=== PATIENT | male | born 1945 | race Caucasian/White ===

== ENCOUNTER 2016-08-09 08:44 | Emergency (ER) | payer MEDICARE, BC ==
--- NOTE | 2016-08-09 10:31 | ED ---
Skin/Abscess/FB HPI - General Chief complaint: Skin/Abscess/Foreign Body Stated complaint: face pain, lip numbness Time Seen by Provider: 08/09/16 09:43 Source: patient, RN notes reviewed Mode of arrival: ambulatory Limitations: no limitations - History of Present Illness Initial comments: Patient is a 71-year-old male presents to the emergency room for evaluation of right-sided facial pain. Patient states he had a lymph node removal by Dr. Benoit 2013. Patient states he began having pain in that same area a few days ago. Patient states the pain was worse last night. Patient states he woke up this morning and felt some tingling in his right upper lip. Patient states he still continuing to have pain on the right side of his face right along the right side of his jaw and inferior to his right ear. Patient denies fevers or chills. Patient denies any trauma to the area. Patient denies any weakness in his arms or legs. Patient denies history of stroke. Patient denies headache or dizziness. Patient denies changes in vision. Patient denies changes in hearing. Patient denies any dental pain or trauma. Patient states he does not have an appointment with Dr. Benoit until next week. Patient denies any significant past medical history. - Related Data Home Medications Medication Instructions Recorded Confirmed Simvastatin [Zocor] 10 mg PO Q48H 08/09/16 08/09/16 Previous Rx's Medication Instructions Recorded Amoxicillin/Potassium Clav 1 each PO Q12HR #20 tab 08/09/16 [Augmentin 875-125 Tablet] Allergies Allergy/AdvReac Type Severity Reaction Status Date / Time Sulfa (Sulfonamide Allergy Unknown Verified 08/09/16 10:11 Antibiotics) Review of Systems ROS Statement: Those systems with pertinent positive or pertinent negative responses have been documented in the HPI. ROS Other: All systems not noted in ROS Statement are negative. Past Medical History Past Medical History: Hyperlipidemia Additional Past Medical History / Comment(s): diverticulitis History of Any Multi-Drug Resistant Organisms: None Reported Past Surgical History: Bowel Resection Smoking Status: Former smoker Past Alcohol Use History: Occasional Past Drug Use History: None Reported General Exam - General Exam Comments Initial Comments: Sitting in exam room, no acute distress. Limitations: no limitations General appearance: alert, in no apparent distress Head exam: Present: atraumatic, normocephalic, normal inspection Eye exam: Present: normal appearance, PERRL, EOMI Pupils: Present: normal accommodation ENT exam: Present: normal exam, normal oropharynx, other (Tenderness on palpating over right parotid gland) Neck exam: Present: normal inspection, tenderness (Tenderness on palpating over the right anterior cervical lymph node), full ROM Respiratory exam: Present: normal lung sounds bilaterally. Absent: respiratory distress Cardiovascular Exam: Present: regular rate, normal rhythm, normal heart sounds Extremities exam: Present: normal inspection Back exam: Present: normal inspection Neurological exam: Present: alert, oriented X3, CN II-XII intact, normal gait Expanded Patient oriented to: Present: person, place, time Speech: Present: fluid speech Cranial nerves: EOM's Intact: Normal, Tongue Deviation: Normal, Facial Sensation : Normal Sensory exam: Upper Extremity Light Touch: Normal, Lower Extremity Light Touch: Normal Motor strength exam: RUE: 5, LUE: 5, RLE: 5, LLE: 5 Eye Response: (4) open spontaneously Motor Response: (6) obeys commands Verbal Response: (5) oriented Psychiatric exam: Present: normal affect, normal mood Skin exam: Present: warm, dry, intact, normal color. Absent: rash Course Vital Signs 08/09/16 08/09/16 09:01 12:58 Temperature 98.2 F 98.3 F Pulse Rate 85 75 Respiratory 20 16 Rate Blood Pressure 169/86 163/84 O2 Sat by Pulse 98 93 L Oximetry Medical Decision Making - Medical Decision Making Patient is a 71-year-old male presents emergency room for evaluation of right sided neck/facial pain and right upper lip numbness. Labs ordered along with amylase to rule out parotitis. Labs show no acute findings. Patient has no evidence for stroke. Patient has no slurred speech or no facial drooping. Patient is alert and active. Strength 5+ in all [address] patient on antibiotics for lymphadenopathy and advised him to follow-up with Dr. Benoit. Patient stated that Dr. Benoit next week. Advised patient to return for any worsening symptoms. Patient states he understands everything that was discussed with him. Return parameters discussed. Discussed with Dr. Turner. - Lab Data Result diagrams: 08/09/16 10:30 08/09/16 10:30 Lab Results 08/09/16 08/09/16 Range/Units 10:30 10:30 WBC 6.9 (3.8-10.6) k/uL RBC 5.94 H (4.30-5.90) m/uL Hgb 17.8 H (13.0-17.5) gm/dL Hct 51.5 (39.0-53.0) % MCV 86.7 (80.0-100.0) fL MCH 30.0 (25.0-35.0) pg MCHC 34.6 (31.0-37.0) g/dL RDW 13.5 (11.5-15.5) % Plt Count 209 (150-450) k/uL Neutrophils % 75 % Lymphocytes % 16 % Monocytes % 5 % Eosinophils % 1 % Basophils % 1 % Neutrophils # 5.2 (1.3-7.7) k/uL Lymphocytes # 1.1 (1.0-4.8) k/uL Monocytes # 0.3 (0-1.0) k/uL Eosinophils # 0.1 (0-0.7) k/uL Basophils # 0.1 (0-0.2) k/uL Sodium 142 (137-145) mmol/L Potassium 4.7 (3.5-5.1) mmol/L Chloride 105 (98-107) mmol/L Carbon Dioxide 25 (22-30) mmol/L Anion Gap 12 mmol/L BUN 15 (9-20) mg/dL Creatinine 0.99 (0.66-1.25) mg/dL Est GFR (MDRD) Af Amer >60 (>60 ml/min/1.73 sqM) Est GFR (MDRD) Non-Af >60 (>60 ml/min/1.73 sqM) Glucose 105 H (74-99) mg/dL Calcium 9.9 (8.4-10.2) mg/dL Total Bilirubin 0.8 (0.2-1.3) mg/dL AST 23 (17-59) U/L ALT 38 (21-72) U/L Alkaline Phosphatase 63 (38-126) U/L Total Protein 7.8 (6.3-8.2) g/dL Albumin 4.4 (3.5-5.0) g/dL Amylase 74 (30-110) U/L Disposition Clinical Impression: Lymphadenopathy of right cervical region Disposition: HOME SELF-CARE Condition: Good Instructions: Lymphadenopathy (ED) Additional Instructions: Take antibiotics as directed. Please follow up with ear, nose and throat specialist for further evaluation. If any new symptom arises or symptoms worsen , return to ER as soon as possible. Prescriptions: Amoxicillin/Potassium Clav [Augmentin 875-125 Tablet] 1 each PO Q12HR #20 tab Referrals: Antoinette Vargas MD [Primary Care Provider] - 1-2 days Time of Disposition: 12:04
[2016-08-09 10:52] LABS: Basophils # (A) 0.1 k/uL (0-0.2); Basophils % (A) 1 %; CH 29.8; CHCM 34.5; Eosinophils # (A) 0.1 k/uL (0-0.7); Eosinophils % (A) 1 %; HCT 51.5 % (39.0-53.0); HDW 2.75; HGB 17.8 gm/dL (13.0-17.5); Luc # (Auto) 0.18; Luc % (Auto) 3; Lymphocytes # (A) 1.1 k/uL (1.0-4.8); Lymphocytes % (A) 16 %; MCHC 34.6 g/dL (31.0-37.0); MCV 86.7 fL (80.0-100.0); Mean Platelet Volume 7.3; Monocytes # (A) 0.3 k/uL (0-1.0); Monocytes % (A) 5 %; Neutrophils # (A) 5.2 k/uL (1.3-7.7); Neutrophils % (A) 75 %; RBC 5.94 m/uL (4.30-5.90); RDW 13.5 % (11.5-15.5); WBC 6.9 k/uL (3.8-10.6); WBC (Perox) 6.88
[2016-08-09 11:05] LABS: ALT 38 U/L (21-72); AST 23 U/L (17-59); Alkaline Phosphatase 63 U/L (38-126); Amylase 74 U/L (30-110); Anion Gap 12 mmol/L; Blood Urea Nitrogen 15 mg/dL (9-20); Calcium 9.9 mg/dL (8.4-10.2); Carbon Dioxide 25 mmol/L (22-30); Chloride 105 mmol/L (98-107); Glucose 105 mg/dL (74-99); Non-African American GFR(MDRD) >60 (>60 ml/min/1.73 sqM); Potassium 4.7 mmol/L (3.5-5.1); Sodium 142 mmol/L (137-145); Total Bilirubin 0.8 mg/dL (0.2-1.3); Total Protein 7.8 g/dL (6.3-8.2)
[2016-08-09 13:00] VITALS: BP 163/84; PULSE 75; RESP 16; TEMP 98.3
== END 2016-08-09 12:58 | disposition home or self-care (01) ==
LOC: EC 08:44
DX: R59.0 Localized enlarged lymph nodes (principal); H92.01 Otalgia, right ear; R51 Headache; R20.2 Paresthesia of skin; R68.84 Jaw pain; E78.5 Hyperlipidemia, unspecified; Z87.891 Personal history of nicotine dependence; Z79.899 Other long term (current) drug therapy; Z88.2 Allergy status to sulfonamides; Z98.890 Other specified postprocedural states
CPT/HCPCS: 36415; 80053; 82150; 85025; 99284

== ENCOUNTER → 2016-08-21 | Outpatient (CLI) | payer MEDICARE, BC ==
[2016-08-21 18:01] LABS: Basophils % (A) 0 %; CH 29.9; CHCM 33.5; Eosinophils # (A) 0.1 k/uL (0-0.7); Eosinophils % (A) 1 %; HCT 55.4 % (39.0-53.0); HDW 2.47; HGB 18.4 gm/dL (13.0-17.5); Luc # (Auto) 0.11; Luc % (Auto) 1; Lymphocytes # (A) 1.3 k/uL (1.0-4.8); Lymphocytes % (A) 10 %; MCH 29.7 pg (25.0-35.0); MCHC 33.1 g/dL (31.0-37.0); MCV 89.6 fL (80.0-100.0); Mean Platelet Volume 7.1; Monocytes # (A) 0.7 k/uL (0-1.0); Monocytes % (A) 5 %; Neutrophils # (A) 11.6 k/uL (1.3-7.7); Neutrophils % (A) 84 %; RBC 6.18 m/uL (4.30-5.90); RDW 14.2 % (11.5-15.5); WBC 13.9 k/uL (3.8-10.6); WBC (Perox) 15.06
[2016-08-21 18:09] LABS: Blood Urea Nitrogen 27 mg/dL (9-20); LDH 384 U/L (313-618); Non-African American GFR(MDRD) >60 (>60 ml/min/1.73 sqM)
--- NOTE | 2016-08-21 21:18 | CT ---
EXAMINATION TYPE: CT soft tissue neck w con DATE OF EXAM: 08/21/2016 7:09 PM HISTORY: Right-sided lump and facial nerve disorder per order. Palpable lump right neck causing facia l paralysis per patient. COMPARISON: Thyroid ultrasound January 27, 2014. CT DLP: 375.0 mGycm. Automated Exposure Control for Dose Reduction was Utilized. TECHNIQUE: CT scan of the neck is performed with IV Contrast, patient injected with 100 mL of Omnipa que 300, axial images are obtained, coronal and sagittal reformatted images are reviewed. FINDINGS: Airway: A 4 mm calcified nodule or pole level right thyroid is redemonstrated on axial image 23. Parotid/submandibular glands: No gross abnormality seen. Carotid/Vascular Structures: No significant focal plaque or stenosis is seen in common or internal ca rotid arteries bilaterally. Osseous Structures: Cervical spine is straightened. There is moderate disc space narrowing C4-C5 leve l. There is moderate disc space narrowing and spurring C5-C6 and C6-C7 levels. Other: No worrisome solid or cystic mass or abnormal fluid collection is seen with particular attenti on to the right neck. There are scattered subcentimeter lymph nodes throughout the neck bilaterally. No greater than 1 cm n maryse lymph nodes are clearly seen bilaterally. IMPRESSION: No significant abnormality is seen to account for patient's symptoms of right-sided palp able mass or lump.
[2016-08-22 07:45] LABS: EBV - EA (IgG) <5.0 U/mL (<9.0); EBV - EBNA (IgG) 76.3 U/mL (<18.0); EBV - VCA (IgG) >750.0 U/mL (<18.0); EBV - VCA IgM <10.0 U/mL (<36.0); Lyme Antibodies Total(IgG/IgM) 0.15 (<0.90)
[2016-08-25 15:06] LABS: Bartonella henselae Ab, IgG <1:64; Bartonella henselae Ab, IgM < 1:16
== END | disposition home or self-care (01) ==
LOC: RADCTMAIN 17:23
PROVIDERS: ATTEND Otolaryngology
DX: G51.8 Other disorders of facial nerve (principal); R22.1 Localized swelling, mass and lump, neck
CPT/HCPCS: 86618; 86665 ×2; 86663; 86664; 86611 ×2; 82565; 83615; 84520; 85025; 86780; 70491; 36415; Q9967

== ENCOUNTER → 2016-10-10 | Outpatient (CLI) | payer MEDICARE, BC ==
[2016-10-10 07:50] LABS: Blood Urea Nitrogen 15 mg/dL (9-20); Non-African American GFR(MDRD) >60 (>60 ml/min/1.73 sqM)
--- NOTE | 2016-10-10 11:41 | MR ---
MRI brain with and without contrast HISTORY: Right facial paralysis Patient received 20 cc MultiHance IV, multiplanar multisequence and postcontrast images through the b rain No comparisons There is no restricted diffusion. Cortical atrophy is present. There is no hemorrhage or hydrocephalu s. The corpus callosum, pituitary, cervical medullary junction, cerebellopontine angles are within no rmal limits. No abnormal enhancement following contrast administration. Periventricular white matter shows patchy and scattered foci of hyperintensity on inversion recovery and T2-weighted sequences, th ere are approximately 5 lesions. 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 No cranial fossa on th e right shows a prominence of the cerebral spinal fluid space which may represent an arachnoid cyst m easuring 14 x 16 x 11 mm. There is normal vascular enhancement. The orbits show symmetric appearance. Mild inflammatory change present in the left maxillary sinus, ethmoid air cells. IMPRESSION: Age-related changes in probable chronic small vessel ischemia. No abnormality evident to account for patient's symptoms. Possible small arachnoid cyst middle cranial fossa on the right.
== END | disposition home or self-care (01) ==
LOC: RADMRIMAIN 07:17
PROVIDERS: ATTEND Otolaryngology
DX: R29.810 Facial weakness (principal)
CPT/HCPCS: 82565; 84520; 70553; 36415; A9577

== ENCOUNTER 2018-06-25 04:23 | Emergency (ER) | payer MEDICARE, BC ==
[2018-06-25 04:31] VITALS: BP 177/95; PULSE 70; RESP 20; TEMP 98
[2018-06-25] MEDS ORDERED: OXYMETAZOLINE 0.05% NASL SPRAY 1 SPRAY BOTTLE NASAL STA (05:35)
[2018-06-25] MEDS ORDERED: cloNIDine HCL 0.1 MG TAB PO STA (05:35)
[2018-06-25] MEDS ORDERED: LIDOCAINE 1%-EPI 1:100,000 20 ML VIAL SQ STA (05:35)
--- NOTE | 2018-06-25 05:37 | ED ---
ENT HPI - General Chief complaint: ENT Stated complaint: nose bleed Time Seen by Provider: 06/25/18 04:43 Source: patient Mode of arrival: ambulatory Limitations: no limitations - History of Present Illness Initial comments: ALLERGIES a pleasant 72-year-old woman presents to the emergency department this morning for evaluation of nosebleed. Patient reports he was sleeping comfortable to use the restroom and upon walking to the restroom noted that there was blood dripping from his nose. He applied direct pressure and drove himself to the emergency department for evaluation. Patient reports a frequent nosebleeds as a child however he grew out of this. He does report that in January 2018 he was seen in outside emergency department due to persistent nosebleed at which time his nose had to be packed, they attempted an nasal tampon but were unsuccessful due to septal deviation and his nose was packed with gauze. Patient has never followed with ENT. Patient is not on any anticoagulant or antiplatelet medications. - Related Data Home Medications Medication Instructions Recorded Confirmed Simvastatin [Zocor] 10 mg PO Q48H 08/09/16 08/09/16 Finasteride [Proscar] 5 mg PO HS 06/25/18 06/25/18 Ranitidine HCl [Zantac] 75 mg PO HS PRN 06/25/18 06/25/18 Allergies Allergy/AdvReac Type Severity Reaction Status Date / Time Sulfa (Sulfonamide Allergy Unknown Verified 06/25/18 06:53 Antibiotics) Review of Systems ROS Statement: Those systems with pertinent positive or pertinent negative responses have been documented in the HPI. ROS Other: All systems not noted in ROS Statement are negative. Past Medical History Past Medical History: Hyperlipidemia Additional Past Medical History / Comment(s): diverticulitis History of Any Multi-Drug Resistant Organisms: None Reported Past Surgical History: Bowel Resection Past Psychological History: No Psychological Hx Reported Smoking Status: Former smoker Past Alcohol Use History: Occasional Past Drug Use History: None Reported General Exam - General Exam Comments Initial Comments: Physical Exam GENERAL: Patient is well-developed and well-nourished. Patient is nontoxic and well- hydrated and is in no distress. HENT: Normocephalic, Atraumatic. Blood from the right naris, blood dripping down the throat EYES: PERRL, EOMI PULMONARY: Unlabored respirations. No audible rales rhonchi or wheezing was noted. CARDIOVASCULAR: There is a regular rate and rhythm without any murmurs gallops or rubs. ABDOMEN: Soft and nontender with normal bowel sounds. SKIN: Skin is clear with no lesions or rashes and otherwise unremarkable. : Deferred NEUROLOGIC: Patient is alert and oriented x3. Moving all extremities spontaneously MUSCULOSKELETAL: Normal extremities with adequate strength and full range of motion. No lower extremity swelling or edema. No calf tenderness. PSYCHIATRIC: Normal psychiatric evaluation. Limitations: no limitations Limitations: no limitations Course Vital Signs 06/25/18 04:28 Temperature 98 F Pulse Rate 70 Respiratory 20 Rate Blood Pressure 177/95 O2 Sat by Pulse 96 Oximetry Medical Decision Making - Medical Decision Making Patient was seen and evaluated history was obtained from patient Nasal clamp was applied Patient was reevaluated and had no further bleeding, he was given Catapres for management of his blood pressure 's blood pressure improved he was evaluated for 60 minutes after the bleeding stopped with no recurrent bleeding supportive care was discussed, including hydration, moisturizing solution, humidifier in the home. Patient has good establish care with Dr. Benoit ENT due to previous management of a throat mass and Slaughter's palsy. Patient will contact Dr. Benoit for follow-up Disposition Clinical Impression: Epistaxis Disposition: HOME SELF-CARE Instructions (If sedation given, give patient instructions): Nosebleed (ED) Is patient prescribed a controlled substance at d/c from ED?: No Referrals: Antoinette Vargas MD [Primary Care Provider] - 1-2 days Eros Beaver DO [Doctor of Osteopathic Medicine] - 1-2 days
== END 2018-06-25 06:58 | disposition home or self-care (01) ==
LOC: EC 04:23
DX: R04.0 Epistaxis (principal); E78.5 Hyperlipidemia, unspecified; J34.2 Deviated nasal septum; Z79.899 Other long term (current) drug therapy; Z88.2 Allergy status to sulfonamides; Z87.891 Personal history of nicotine dependence
CPT/HCPCS: 96372; 99283

== ENCOUNTER 2019-03-04 16:41 | Emergency (ER) | payer MEDICARE, BC ==
[2019-03-04 16:58] VITALS: BP 154/90; TEMP 97.6
[2019-03-04] MEDS ORDERED: OXYMETAZOLINE 0.05% NASL SPRAY 1 SPRAY BOTTLE NASAL STA (17:50)
--- NOTE | 2019-03-04 19:35 | ED ---
General Adult HPI - General Chief complaint: ENT Stated complaint: NOSEBLEED Time Seen by Provider: 03/04/19 17:49 Source: patient, RN notes reviewed, old records reviewed Mode of arrival: ambulatory Limitations: no limitations - History of Present Illness Initial comments: 73 male patient with chief complaint of left nosebleed. This began approximately 2 hours before presentation to ER. Patient was this has occurred in the past. Denies any use of blood thinners. Denies any other complaints. Systemic: Pt denies fatigue, fever/chills, rash. Pt denies weakness, night sweats, weight loss. Neuro: Pt denies headache, visual disturbances, syncope or pre-syncope. HEENT: Pt denies ocular discharge or irritation, otalgia, rhinorrhea, pharyngitis or notable lymphadenopathy. Cardiopulmonary: Pt denies chest pain, SOB, heart palpitations, dyspnea on exertion. Abdominal/GI: Pt denies abdominal pain, n/v/d. : Pt denies dysuria, burning w/ urination, frequency/urgency. Denies new onset urinary or bowel incontinence. MSK: Pt denies myalgia, loss of strength or function in extremities. Neuro: Pt denies new onset weakness, paresthesias. - Related Data Home Medications Medication Instructions Recorded Confirmed Simvastatin [Zocor] 10 mg PO Q48H 08/09/16 03/04/19 Finasteride [Proscar] 5 mg PO HS 06/25/18 03/04/19 Ranitidine HCl [Zantac] 75 mg PO HS PRN 06/25/18 03/04/19 Allergies Allergy/AdvReac Type Severity Reaction Status Date / Time Sulfa (Sulfonamide Allergy Unknown Verified 06/25/18 06:53 Antibiotics) Review of Systems ROS Statement: Those systems with pertinent positive or pertinent negative responses have been documented in the HPI. ROS Other: All systems not noted in ROS Statement are negative. Past Medical History Past Medical History: Hyperlipidemia, Hypertension Additional Past Medical History / Comment(s): diverticulitis History of Any Multi-Drug Resistant Organisms: None Reported Past Surgical History: Bowel Resection Past Psychological History: No Psychological Hx Reported Smoking Status: Former smoker Past Alcohol Use History: Occasional Past Drug Use History: None Reported General Exam - General Exam Comments Initial Comments: Constitutional: NAD, AOX3, Pt has pleasant affect. HEENT: NC/AT, trachea midline, neck supple, no lymphadenopathy. Posterior pharynx non erythematous, without exudates. External ears appear normal, without discharge. Mucous membranes moist. Eyes PERRLA, EOM intact. There is no scleral icterus. No pallor noted. Left anterior epistaxis noted. Cardiopulmonary: RRR, no murmurs, rubs or gallops, no JVD noted. Lungs CTAB in anterior and posterior celaya. No peripheral edema. Abdominal exam: Abdomen soft and non-distended. Abdomen non-tender to palpation in all 4 quadrants. Bowel sounds active in LLQ. No hepatosplenomegaly. No ecchymosis Neuro: CN II-XII grossly intact. No nuchal rigidity. No raccon eyes, no banks sign, no hemotympanum. No cervical spinal tenderness. MSK: No posterior calf tenderness bilaterally, homans sign negative bilaterally. Posterior tibialis and radial pulse +2 bilaterally. Sensation intact in upper and lower extremities. Full active ROM in upper and lower extremities, 5/5 stregnth. Limitations: no limitations Course Vital Signs 03/04/19 16:56 Temperature 97.6 F Pulse Rate 108 H Respiratory 17 Rate Blood Pressure 154/90 O2 Sat by Pulse 97 Oximetry Medical Decision Making - Medical Decision Making 73-year-old male patient in C chief complaint of nosebleed from left NARE. This began approximately 2 hours before presentation to ER. Patient also in stable, afebrile. Physical exam displayed left anterior epistaxis. Resolved with nasal clamp, Afrin. Patient discharged with follow-up with primary care provider and return to ER if condition worsens. Case discussed with Dr. Mondragon. Disposition Clinical Impression: Anterior epistaxis Disposition: HOME SELF-CARE Condition: Stable Instructions (If sedation given, give patient instructions): Nosebleed (ED) Additional Instructions: Patient to adhere to previously discussed treatment plan and will take medication(s) as directed. Patient to follow up with PCP in 1-2 days. Patient to return to ED if symptoms do not improve. Follow-up with ENT if symptoms persist. Is patient prescribed a controlled substance at d/c from ED?: No Referrals: Antoinette Vargas MD [Primary Care Provider] - 1-2 days Luke Carr MD [STAFF PHYSICIAN] - 1-2 days
[2019-03-04 20:00] VITALS: PULSE 95; RESP 18
== END 2019-03-04 20:00 | disposition home or self-care (01) ==
LOC: EC 16:41
DX: R04.0 Epistaxis (principal); E78.5 Hyperlipidemia, unspecified; I10 Essential (primary) hypertension; Z87.891 Personal history of nicotine dependence; Z88.2 Allergy status to sulfonamides; Z79.899 Other long term (current) drug therapy; Z87.19 Personal history of other diseases of the digestive system
CPT/HCPCS: 30901; 99283

== ENCOUNTER 2019-03-08 06:48 | Emergency (ER) | payer MEDICARE, BC ==
[2019-03-08 06:58] VITALS: TEMP 97.9
[2019-03-08] MEDS ORDERED: OXYMETAZOLINE 0.05% NASL SPRAY 1 SPRAY BOTTLE NASAL STA (06:58)
[2019-03-08] MEDS ORDERED: SILVER NITRATE APPLICATOR 1 EACH STICK..EA. TOPICAL STA (06:58)
[2019-03-08] MEDS ORDERED: LIDOCAINE/EPINEPHR/TETRACAINE 5 ML BOTTLE TOPICAL ONE (07:17)
--- NOTE | 2019-03-08 07:19 | ED ---
ENT HPI - General Chief complaint: ENT Stated complaint: Nose Bleed No Injury Time Seen by Provider: 03/08/19 06:52 Source: patient, RN notes reviewed, old records reviewed Mode of arrival: ambulatory Limitations: no limitations - History of Present Illness Initial comments: Patient is a 73-year-old male presents [facility] today for evaluation for nose bleed. Symptoms started at 6 am. Patient reports that he was seen in the emergency department a few days ago for a nosebleed. He reports that it was controlled after just nasal clamp and Afrin spray at that time. Patient reports he does not use Afrin spray or do anything with that since that time. Patient has had no other significant complaints. He is not on blood thinners. - Related Data Home Medications Medication Instructions Recorded Confirmed Simvastatin [Zocor] 10 mg PO Q48H 08/09/16 03/04/19 Finasteride [Proscar] 5 mg PO HS 06/25/18 03/04/19 Ranitidine HCl [Zantac] 75 mg PO HS PRN 06/25/18 03/04/19 Previous Rx's Medication Instructions Recorded Sodium Chloride [Saline Nasal 1 spray EA NOSTRIL TID #1 bottle 03/08/19 Thrall] Allergies Allergy/AdvReac Type Severity Reaction Status Date / Time Sulfa (Sulfonamide Allergy Unknown Verified 03/08/19 06:58 Antibiotics) Review of Systems ROS Statement: Those systems with pertinent positive or pertinent negative responses have been documented in the HPI. ROS Other: All systems not noted in ROS Statement are negative. Past Medical History Past Medical History: Hyperlipidemia, Hypertension Additional Past Medical History / Comment(s): diverticulitis History of Any Multi-Drug Resistant Organisms: None Reported Past Surgical History: Bowel Resection Past Psychological History: No Psychological Hx Reported Smoking Status: Former smoker Past Alcohol Use History: Occasional Past Drug Use History: None Reported General Exam - General Exam Comments Initial Comments: This is a 73-year-old male. Alert and oriented. No distress. Limitations: no limitations General appearance: alert, in no apparent distress Head exam: Present: atraumatic, normocephalic, normal inspection Eye exam: Present: normal appearance, PERRL, EOMI. Absent: scleral icterus, conjunctival injection, periorbital swelling ENT exam: Present: normal exam, mucous membranes moist, other (Patient has a bleed in the right nostril, appears anterior.No posterior bleeding down throat noted. ) Neck exam: Present: normal inspection. Absent: tenderness, meningismus, lymphadenopathy Respiratory exam: Present: normal lung sounds bilaterally Cardiovascular Exam: Present: regular rate, normal rhythm, normal heart sounds. Absent: systolic murmur, diastolic murmur, rubs, gallop, clicks GI/Abdominal exam: Present: soft, normal bowel sounds. Absent: distended, tenderness, guarding, rebound, rigid Extremities exam: Present: normal inspection, full ROM, normal capillary refill. Absent: tenderness, pedal edema, joint swelling, calf tenderness Back exam: Present: normal inspection Course Vital Signs 03/08/19 06:56 Temperature 97.9 F Pulse Rate 95 Respiratory 20 Rate Blood Pressure 157/85 O2 Sat by Pulse 97 Oximetry - Reevaluation(s) Reevaluation #1: 03/08/19 07:59 Patient had lidocaine with epinephrine and nasal clamp applied to the nose. This was held for 10 minutes, and bleeding seems to be controlled. We did use a small amount of nasal cautery with silver nitrate over the lower lateral anterior turbinate Medical Decision Making - Medical Decision Making Patient is a 33-year-old male presents today with a nosebleed from right naris starting at 6 AM. Not on blood thinners. Patient reports he woke up with nosebleed. He was seen in department a few days ago for similar complaint. At this time Patient has evidence of anterior bleed. Patient had nasal clamp Afrin spray applied. The need to have small amount of bleeding when he came with epinephrine was placed on cottonball and Patient did receive one stick of slurred nitrate to use for cautery of a anterior epistaxis. Patient tolerated procedure well. He is kept emergency department for 30 minutes after cautery and has no further bleeding. He states he feels well likely discharged home. Discussed the importance of using saline sprays or humidifiers to prevent further nosebleeds. Discussed using a small amount of triple antibiotic ointment over the area of cautery. Patient is agreeable to treatment plan will comply. Patient reports he has previously seen Dr. Benoit in the past for other ENT complaints. Discussed she may benefit from follow-up with him as well. Disposition Clinical Impression: Nosebleed, Anterior epistaxis Disposition: HOME SELF-CARE Condition: Good Instructions (If sedation given, give patient instructions): Nosebleed (ED) Additional Instructions: Patient advised to use the saline spray twice a day. Use triple antibiotic ointment over the area that was cauterized. Recommended having a humidifier in bedroom and using at night. Follow-up with ENT specialist that bleeds recur. Do have any repeat nosebleeds applied Afrin spray and nasal clamp for 30 minutes. Prescriptions: Sodium Chloride [Saline Nasal Thrall] 1 spray EA NOSTRIL TID #1 bottle Is patient prescribed a controlled substance at d/c from ED?: No Referrals: Antoinette Vargas MD [Primary Care Provider] - 1-2 days Time of Disposition: 08:38
[2019-03-08] MEDS ORDERED: amLODIPine 5 MG TAB PO STA (08:57)
[2019-03-08 09:03] VITALS: PULSE 82; RESP 16
[2019-03-08 09:33] VITALS: BP 148/90
== END 2019-03-08 09:31 | disposition home or self-care (01) ==
LOC: EC 06:48
DX: R04.0 Epistaxis (principal); E78.5 Hyperlipidemia, unspecified; I10 Essential (primary) hypertension; Z79.899 Other long term (current) drug therapy; Z88.2 Allergy status to sulfonamides; Z87.891 Personal history of nicotine dependence
CPT/HCPCS: 30901; 99283

== ENCOUNTER → 2019-04-07 | Outpatient (CLI) | payer MEDICARE, BC | END | disposition home or self-care (01) | LOC: LABWHC1 08:13 | PROVIDERS: ATTEND Urology | DX: R97.20 Elevated prostate specific antigen [PSA] (principal) | CPT/HCPCS: 36415; 84153 ==

== ENCOUNTER → 2020-04-13 | Outpatient (CLI) | payer MEDICARE | END | disposition home or self-care (01) | LOC: LABWHC1 09:14 | PROVIDERS: ATTEND Urology | DX: R97.20 Elevated prostate specific antigen [PSA] (principal) | CPT/HCPCS: 36415; 84153 ==

== ENCOUNTER → 2020-07-12 | Outpatient (CLI) | payer MEDICARE | LOC: LABWHC1 08:31 | PROVIDERS: ATTEND Urology | DX: R97.20 Elevated prostate specific antigen [PSA] (principal) | CPT/HCPCS: 36415; 84153 ==

== ENCOUNTER → 2021-01-18 | Outpatient (CLI) | payer MEDICARE | END | disposition home or self-care (01) | LOC: LABWHC1 08:13 | PROVIDERS: ATTEND Urology | DX: C61 Malignant neoplasm of prostate (principal) | CPT/HCPCS: 36415; 84153 ==

== ENCOUNTER → 2021-09-08 | Outpatient (CLI) | payer MEDICARE | END | disposition home or self-care (01) | LOC: LABWHC1 13:42 | PROVIDERS: ATTEND Urology | DX: N40.1 Benign prostatic hyperplasia with lower urinary tract symptoms (principal) | CPT/HCPCS: 36415; 84153 ==

== ENCOUNTER → 2021-09-08 | Outpatient (CLI) | payer MEDICARE ==
--- NOTE | 2021-09-08 17:00 | XR ---
Limited cervical spine HISTORY: Left-sided neck pain, M54.50,M54.2 3 views of the cervical spine There is multilevel spondylosis. Loss of disc height is present at C4-5, C5-6 and C6-7, C7-T1 and T1- T2. There is near-anatomic alignment. Cervical vertebral bodies show preserved height. Loss of lordos is is noted. Prevertebral soft tissues are normal. There is facet arthropathy change present. Odontoi d view is limited. IMPRESSION: Degenerative disc disease and facet arthropathy.
--- NOTE | 2021-09-08 17:02 | XR ---
Lumbar spine HISTORY: M 54.50, M 54.2 3 views the lumbar spine, no comparisons There is a spinal curvature. Lumbar vertebral bodies show preserved height. Bone mineralization is wi thin normal limits. Sclerosis in the posterior element is consistent with facet arthropathy. There is loss of disc height at intervertebral levels, vacuum phenomenon present L5-S1, L2-3. There is multil evel spondylosis. Surgical clip present within the pelvis. Aorta iliac distribution shows atheromatou s calcification. Minimal anterolisthesis grade 1 L5-S1. IMPRESSION: Degenerative disc disease, spinal curvature, facet arthropathy.
== END | disposition home or self-care (01) ==
LOC: RADXRMAIN 14:44
PROVIDERS: ATTEND Internal Medicine
DX: M47.812 Spondylosis without myelopathy or radiculopathy, cervical region (principal); M50.33 Other cervical disc degeneration, cervicothoracic region; M51.36 Other intervertebral disc degeneration, lumbar region; M47.816 Spondylosis without myelopathy or radiculopathy, lumbar region; M43.8X6 Other specified deforming dorsopathies, lumbar region
CPT/HCPCS: 72040; 72100

== ENCOUNTER → 2023-06-21 | Outpatient (CLI) | payer MEDICARE ==
[2023-06-21 16:41] LABS: Basophils % (A) 0.8 %; Eosinophils % (A) 1.9 %; HCT 50.2 % (39.6-50.0); Lymphocytes # (A) 1.49 X 10*3/uL (0.90-5.00); Lymphocytes % (A) 23.7 %; MCH 28.7 pg (27.0-32.0); MCHC 31.9 g/dL (32.0-37.0); MCV 90.1 FL (80.0-97.0); Mean Platelet Volume 10.6 FL (9.5-12.2); Monocytes # (A) 0.51 X 10*3/uL (0.20-1.00); Monocytes % (A) 8.1 %; NRBC Per 100 WBC 0 X 10*3/uL (0.00-0.01); Neutrophils # (A) 4.11 X 10*3/uL (1.80-7.70); Neutrophils % (A) 65.2 %; Platelet Count 252 X 10*3/uL (140-440); RBC 5.57 X 10*6/uL (4.40-5.60); RDW 13.8 % (11.5-14.5)
[2023-06-21 16:42] LABS: Basophils # (A) 0.05 X 10*3/uL (0.00-0.10); Eosinophils # (A) 0.12 X 10*3/uL (0.04-0.35)
[2023-06-21 17:06] LABS: ALT 15 U/L (10-49); AST 17 U/L (14-35); Albumin 4.3 g/dL (3.8-4.9); Albumin/Globulin Ratio 1.43 Ratio (1.60-3.17); Alkaline Phosphatase 67 U/L (41-126); BUN/Creat Ratio 15.78 Ratio (12.00-20.00); Blood Urea Nitrogen 14.2 mg/dL (9.0-27.0); Calcium 9.6 mg/dL (8.7-10.3); Carbon Dioxide 25.2 mmol/L (21.6-31.8); Chloride 103 mmol/L (96-109); Chol/HDL Ratio 3.02 Ratio; Glucose 101 mg/dL (70-110); LDL Cholesterol,Calculated 85.9 mg/dL (0.0-131.0); Potassium 4.7 mmol/L (3.5-5.5); Sodium 141 mmol/L (135-145); Total Bilirubin 0.6 mg/dL (0.3-1.2); Total Protein 7.3 g/dL (6.2-8.2)
== END | disposition home or self-care (01) ==
LOC: LABWHC1 10:08
PROVIDERS: ATTEND Internal Medicine
DX: Z11.59 Encounter for screening for other viral diseases (principal); I10 Essential (primary) hypertension
CPT/HCPCS: 36415; 80053; 80061; 84439; 84443; 85025; 86803

== ENCOUNTER 2023-08-21 09:15 | Day surgery (SDC) | payer MEDICARE ==
[2023-08-21] MEDS: LACTATED RINGERS 1,000 ML IV SCH (10:03)
[2023-08-21 10:28] VITALS: TEMP 97
[2023-08-21] MEDS ORDERED: PROPOFOL 10 MG/ML 20 ML VIAL IV ONE (10:49)
--- NOTE | 2023-08-21 11:05 | P.PCN ---
Date of Procedure: 08/21/23 Procedure(s) Performed: BRIEF HISTORY: Patient is a 78-year-old pleasant white male scheduled for an elective colonoscopy as a part of screening for colon cancer. PROCEDURE PERFORMED: Colonoscopy. PREOPERATIVE DIAGNOSIS: screening for colon cancer IV sedation per Anesthesia. PROCEDURE: After informed consent was obtained, the patient, was brought into the endoscopy unit. IV sedation was administered by Anesthesia under continuous monitoring. Digital rectal examination was normal. Initially the Olympus CF-160 flexible video colonoscope was then inserted in the rectum, gradually advanced into the cecum without any difficulty. Careful examination was performed as the scope was gradually being withdrawn. Ileocecal valve and the appendiceal orifice were visualized and appeared normal. Prep was excellent. Mucosa of the cecum, ascending colon, transverse colon, descending colon, sigmoid colon, and rectum appeared normal. scattered sigmoid diverticulosisRetroflexion was performed in the rectum and no lesions were seen. The patient tolerated the procedure well. IMPRESSION: Normal-appearing colon from rectum to cecum with no evidence of colon rectal neoplasia. Scattered sigmoid diverticulosis RECOMMENDATIONS: Findings of this examination were discussed with the patient as well as his family. He was advised to continue with a high-fiber diet and fiber supplements a regular basis
[2023-08-21 11:49] VITALS: BP 116/68; PULSE 57
[2023-08-21 11:50] VITALS: RESP 20
== END 2023-08-21 12:01 | disposition home or self-care (01) ==
LOC: ORWHC2ENDO 09:15
PROVIDERS: ATTEND Internal Medicine Gastroenterology
DX: Z12.11 Encounter for screening for malignant neoplasm of colon (principal); K57.30 Diverticulosis of large intestine without perforation or abscess without bleeding; I10 Essential (primary) hypertension; E78.5 Hyperlipidemia, unspecified; M19.90 Unspecified osteoarthritis, unspecified site; Z88.2 Allergy status to sulfonamides; Z79.899 Other long term (current) drug therapy; Z98.890 Other specified postprocedural states
CPT/HCPCS: J2704; G0121

== ENCOUNTER → 2024-02-06 | Outpatient (CLI) | payer MEDICARE ==
[2024-02-06 15:10] LABS: T4, Free (Free Thyroxine) 1.54 ng/dL (0.80-1.80)
== END | disposition home or self-care (01) ==
LOC: LABWHC1 09:52
PROVIDERS: ATTEND Internal Medicine
DX: Z00.00 Encounter for general adult medical examination without abnormal findings
CPT/HCPCS: 36415; 84439; 84443

== ENCOUNTER → 2024-10-21 | Outpatient (CLI) | payer MEDICARE ==
[2024-10-21 15:10] LABS: Basophils # (A) 0.05 X 10*3/uL (0.00-0.10); Basophils % (A) 0.7 %; Eosinophils % (A) 2.9 %; HCT 49.5 % (39.6-50.0); HGB 15.7 g/dL (13.0-17.0); Lymphocytes # (A) 1.72 X 10*3/uL (0.90-5.00); Lymphocytes % (A) 24.7 %; MCH 28.9 pg (27.0-32.0); MCHC 31.7 g/dL (32.0-37.0); MCV 91.2 FL (80.0-97.0); Mean Platelet Volume 10.3 FL (9.5-12.2); Monocytes # (A) 0.62 X 10*3/uL (0.20-1.00); Monocytes % (A) 8.9 %; NRBC Per 100 WBC 0 X 10*3/uL (0.00-0.01); Neutrophils # (A) 4.33 X 10*3/uL (1.80-7.70); Neutrophils % (A) 62.4 %; Platelet Count 256 X 10*3/uL (140-440); RBC 5.43 X 10*6/uL (4.40-5.60); RDW 14.3 % (11.5-14.5); WBC 6.95 X 10*3/uL (4.50-10.00)
[2024-10-21 15:23] LABS: ALT 12 U/L (10-49); AST 16 U/L (14-35); Albumin/Globulin Ratio 1.48 Ratio (1.60-3.17); Alkaline Phosphatase 65 U/L (41-126); Blood Urea Nitrogen 13.4 mg/dL (9.0-27.0); Calcium 9.4 mg/dL (8.7-10.3); Carbon Dioxide 24.5 mmol/L (21.6-31.8); Chloride 105 mmol/L (96-109); Chol/HDL Ratio 3.28 Ratio; Globulin 2.7 g/dL (1.6-3.3); Glucose 96 mg/dL (70-110); LDL Cholesterol,Calculated 90.2 mg/dL (0.0-131.0); Magnesium 1.9 mg/dL (1.5-2.4); Potassium 4.6 mmol/L (3.5-5.5); Prostate Specific Antigen 3.69 ng/mL (0.000-6.500); Sodium 139 mmol/L (135-145); T4, Free (Free Thyroxine) 1.53 ng/dL (0.80-1.80); Total Bilirubin 0.7 mg/dL (0.3-1.2); Total Protein 6.7 g/dL (6.2-8.2); VLDL Calculation 14.02 mg/dL (5.00-40.00)
== END | disposition home or self-care (01) ==
LOC: LABWHC1 09:47
PROVIDERS: ATTEND Urology
DX: I10 Essential (primary) hypertension (principal); E03.8 Other specified hypothyroidism; R97.20 Elevated prostate specific antigen [PSA]
CPT/HCPCS: 36415; 80053; 80061; 83735; 84153; 84439; 84443; 85025